=== PATIENT | female | born 2000 | race Caucasian/White ===

== ENCOUNTER 2020-02-26 09:43 | Emergency (ER) | payer MEDICAID ==
--- NOTE | 2020-02-26 10:08 | ER Document Report ---
ED General - General Chief Complaint: Vag Bleeding, +preg <12wks Stated Complaint: VAGINAL BLEEDING/ABDOMINAL PAIN Time Seen by Provider: 02/26/20 09:52 Primary Care Provider: [facility] [Provider Group] - 02/29/20 (For repeat hormone measurement and possible ultrasound) Notes: 1-year-old female G2, P1 with unplanned but desired at 4 weeks and 3 days by dates. Comes in with malaise and nausea. No urinary symptoms, abdominal pain. Did develop spotting today x2 with one small clot but no v isible products of conception and no pain. She was seen in the ED previously for the same and diagnosed as on urine has not [facility] [place]. - Related Data Allergies/Adverse Reactions: amoxicillin Allergy (Verified 02/26/20 09:52) Penicillins Allergy (Verified 02/26/20 09:52) Past Medical History - General Information source: Patient - Social History Smoking Status: Never Smoker Frequency of alcohol use: None Drug Abuse: None Family History: None Review of Systems - Review of Systems Notes: REVIEW OF SYSTEMS GEN: Denies fever, chills, weight loss ENT: Denies sore throat, nasal discharge, ear pain EYES: Denies blurry vision, eye pain, discharge CV: Denies chest pain, palpitations, edema RESP: Denies cough, shortness of breath, wheezing GI: Vaginal spotting MSK: Denies joint pain/swelling, edema, SKIN: Denies rash, skin lesions LYMPH: Denies swollen glands/lymph nodes NEURO: Denies headache, focal weakness or numbness, dizziness PSYCH: Denies depression, suicidal or homicidal ideation PHYSICAL EXAMINATION General: No acute distress, well-nourished Head: Atraumatic, normocephalic ENT: Mouth normal, oropharynx moist, no exudates or tonsillar enlargement Eyes: Conjunctiva normal, pupils equal, lids normal Neck: No JVD, supple, no guarding CVS: Normal rate, regular rhythm, no murmurs Resp: No resp distress, equal and normal breath sounds bilaterally GI: Nondistended, soft, no tenderness to palpation, no rebound or guarding Ext: No deformities, no edema, normal range of motion in upper and lower ext Back: No CVA or midline TTP Skin: No rash, warm Lymphatic: No lymphadeopathy noted Neuro: Awake, alert. Face symmetric. GCS 15. Physical Exam - Vital signs Vitals: Temp Pulse Resp BP Pulse Ox 98.5 F 79 20 117/60 97 02/26/20 09:48 02/26/20 09:48 02/26/20 09:48 02/26/20 09:48 02/26/20 09:48 Course - Re-evaluation Re-evalutation: 02/26/20 10:07 1st trimester spotting hemodynamically stable no tenderness to really to see on transabdominal ultrasound. Will check transvaginal and beta but likely severe of unknown location the differential includes normal ectopic unruptured and spontaneous miscarriage. 02/26/20 11:26 Ultrasound shows thickened and return likely early IUP but not confirmatory secondary to dates of unknown location instructions given we will follow-up with primary care recommended B6 pyridoxine/Unisom [id number] I have discussed with the patient there likely diagnosis, aftercare plan, follow-up plans and my usual and customary return precautions. They verbalized understanding of this. - Vital Signs Vital signs: Temp Pulse Resp BP Pulse Ox 98.5 F 79 20 117/60 97 02/26/20 09:48 02/26/20 09:48 02/26/20 09:48 02/26/20 09:48 02/26/20 09:48 - Laboratory Result Diagrams: 02/26/20 10:06 02/26/20 10:06 Laboratory results interpreted by me: 02/26/20 10:25 Beta HCG, Quant 47.37 H - Diagnostic Test Radiology reviewed: Image reviewed, Reports reviewed Procedures - Ultrasound/Bedside Ultrasound/Bedside Ultrasound: Other - Transabdominal pelvic limited. Normal anteflexed uterus with normal stripe thickness and no obvious intrauterine . No free flu id. Discharge - Discharge Clinical Impression: First trimester bleeding Condition: Good Disposition: HOME, SELF-CARE Instructions: Threatened Miscarriage ([facility]) Referrals: [facility] [Provider Group] - 02/29/20 (For repeat hormone measurement and possible ultrasound)
[2020-02-26 10:33] LABS: ABSOLUTE BASOPHILS # (AUTO) 0.1 10^3/uL (0.0-0.2); ABSOLUTE EOSINOPHILS # (AUTO) 0.4 10^3/uL (0.0-0.6); ABSOLUTE LYMPHOCYTES (AUTO) 2.8 10^3/uL (0.5-4.7); ABSOLUTE MONOCYTES (AUTO) 0.5 10^3/uL (0.1-1.4); ABSOLUTE NEUT (AUTO) 5.6 10^3/uL (1.7-8.2); BASOPHILS % (AUTO) 0.7 % (0-2); EOSINOPHILS % (AUTO) 3.9 % (0-6); HEMOGLOBIN 13.5 g/dL (12.0-15.5); LYMPHOCYTES % (AUTO) 29.7 % (13-45); MEAN CORPUSCULAR HEMOGLOBIN 30.6 pg (27.0-33.4); MEAN CORPUSCULAR HGB CONC 34.5 g/dL (32.0-36.0); MEAN CORPUSCULAR VOLUME 89 fl (80-97); MONOCYTES % (AUTO) 5.6 % (3-13); PLATELET COUNT 317 10^3/uL (150-450); RED BLOOD COUNT 4.41 10^6/uL (3.72-5.28); RED CELL DISTRIBUTION WIDTH 12.6 % (11.5-14.0); SEGMENTED NEUTROPHILS % (AUTO) 60.1 % (42-78); TOTAL CELLS COUNTED % (AUTO) 100 %; WHITE BLOOD COUNT 9.4 10^3/uL (4.0-10.5)
[2020-02-26 10:54] LABS: ANION GAP 9 (5-19); BLOOD UREA NITROGEN 10 mg/dL (7-20); CALCIUM 9.4 mg/dL (8.4-10.2); CARBON DIOXIDE 25 mmol/L (22-30); CHLORIDE 106 mmol/L (98-107); GLUCOSE 94 mg/dL (75-110); POTASSIUM 4.4 mmol/L (3.6-5.0)
--- NOTE | 2020-02-26 11:21 | RADIOLOGY REPORT (SQ) ---
EXAM DESCRIPTION: U/S OB TRANSVAGINAL W/O DOP IMAGES COMPLETED DATE/TIME: 02/26/2020 11:08 am REASON FOR STUDY: preg VB COMPARISON: None. TECHNIQUE: Transvaginal static and realtime grayscale images acquired of the pelvis. Additional lorelei cted spectral and color Doppler images recorded. All images stored on PACs. CLINICAL AGE: 5 weeks 3 days BHCG: Not available. LIMITATIONS: None. FINDINGS: UTERUS: No visualized intrauterine . RIGHT ADNEXA: Normal ovary with normal vascular flow. No adnexal free fluid. No adnexal masses. LEFT ADNEXA: Normal ovary with normal vascular flow. No adnexal free fluid. No adnexal masses. FREE FLUID: None. OTHER: No other significant finding. IMPRESSION: NO VISUALIZED INTRA- OR EXTRAUTERINE . bHCG LEVEL NOT AVAILABLE FOR CORRELATION WITH US FINDINGS. ECTOPIC CANNOT BE EXCLUDED. FOLLOW-UP ULTRASOUND AND SERIAL BHCG LEVELS STRONGLY RECOMMENDED TO ACCURATELY ASSESS STATU S. TECHNICAL DOCUMENTATION: JOB ID: [id number] 2010 [employer]- All Rights Reserved Reading location - IP/workstation name: [email or web address]
[2020-02-26 11:28] VITALS: BP 116/58
== END 2020-02-26 11:28 | disposition home or self-care (01) ==
LOC: ER 09:43
DX: O20.9 Hemorrhage in early pregnancy, unspecified (principal); Z3A.01 Less than 8 weeks gestation of pregnancy
CPT/HCPCS: 36415; 76817; 80048; 84702; 85025; 86850; 86900; 86901; 99284